=== PATIENT | female | born 1975 ===

== ENCOUNTER 2017-06-24 08:40 | Day surgery (SDC) | payer OTHER ==
[2017-06-24] VITALS (8 sets, daily range): BP systolic 96–105; BP diastolic 56–70
[~2017-06-24] VITALS: Ht 152.4 cm; Wt 59.0 kg
[~2017-06-24 08:40] MED LIST: LR 1000ml 1,000 ML IVLG SCH
[2017-06-24] MEDS ORDERED: Lidocaine 1% MPF 10mg/ml 5ml ONE (08:41)
[2017-06-24] MEDS ORDERED: Propofol 200mg/20ml IV ONE (08:41)
[2017-06-24] MEDS ORDERED: ALBUTEROL SULF8.5 GM INH (09:44)
[2017-06-24] MEDS ORDERED: SERTRALINE HCL100 MG PO (09:44)
[2017-06-24] MEDS ORDERED: LEVSIN-SL0.125 MG SL (09:44)
[2017-06-24] MEDS ORDERED: ZOLPIDEM TARTRA10 MG ORAL (09:44)
[2017-06-24] MEDS ORDERED: OMEPRAZOLE40 M1 ORAL (09:44)
[2017-06-24] MEDS ORDERED: DILAUDID8 MG PO (09:44)
[2017-06-24] MEDS ORDERED: TOPIRAMATE100 MG ORAL (09:44)
[2017-06-24] MEDS ORDERED: LR 1000ml 1,000 ML IVLG SCH (10:20)
--- NOTE | 2017-06-24 10:22 | Anethesia Preoperative Eval ---
Anesthesia Pre-op PMH/ROS General Date of Evaluation: Jun 24, 2017 Time of Evaluation: 10:37 Anesthesiologist: Patrick ASA Score: ASA 3 Mallampati Score Class I : Soft palate, uvula, fauces, pillars visible Class II: Soft palate, uvula, fauces visible Class III: Soft palate, base of uvula visible Class IV: Only hard plate visible Mallampati Classification: Class II Surgeon: Shay Diagnosis: GERD Surgical Procedure: EGD Anesthesia History: none Family History: no anesthesia problems Allergies: Coded Allergies: No Known Allergies (Unverified , 06/23/17) Medications: see eMAR Past Medical History Cardiovascular: Reports: HTN, other - HL Pulmonary: Reports: asthma Gastrointestinal/Genitourinary: Reports: GERD Endocrine: Reports: DM PSxH Narrative: L CTR Anesthesia Pre-op Phys. Exam Physician Exam Last Vital Signs Date Time Temp Pulse Resp B/P (MAP) Pulse Ox O2 Delivery O2 Flow Rate FiO2 06/24/17 09:32 98.6 74 18 102/68 97 Room Air 98.6 Constitutional: NAD Neurologic: CN 2-12 intact Cardiovascular: RRR Respiratory: CTA Gastrointestinal: S/NT/ND Airway Exam Mallampati Score: Class II MO: limited ROM: limited Teeth: intact, broken Anesthesia Pre-op A/P Labs Urine Test Test 06/24/17 08:50 Urine HCG, Qualitative Negative (NEGATIVE) Risk Assessment & Plan Assessment: ASA 3 Plan: GA Status Change Before Surgery: No Froy Douglas MD Jun 24, 2017 10:22
[2017-06-24] MEDS ORDERED: Atropine Inj 1mg/10ml Syr IV PRN (10:30)
[2017-06-24] MEDS ORDERED: Midazolam 2mg/2ml Inj IVP PRN (10:30)
[2017-06-24] MEDS ORDERED: DiphenhydrAMINE 50mg/ml Inj IVP PRN (10:30)
[2017-06-24] MEDS ORDERED: Labetalol 5mg/ml 20ml vial IV PRN (10:30)
[2017-06-24] MEDS ORDERED: fentaNYL 100 mcg/2 mL IV PRN (10:30)
[2017-06-24] MEDS ORDERED: Norco 5mg/325mg tab ORAL PRN (10:30)
[2017-06-24] MEDS ORDERED: Hydromorphone 0.5mg/0.5ml inj IVP PRN (10:30)
[2017-06-24] MEDS ORDERED: LORazepam Inj 2mg/ml 1ml IV PRN (10:30)
[2017-06-24] MEDS ORDERED: oxyCODONE HCL/Acetaminophen 5/325mg ORAL PRN (10:30)
[2017-06-24] MEDS ORDERED: HYDROcodone/Acetamin 7.5/325 tab ORAL PRN (10:30)
[2017-06-24] MEDS ORDERED: Ketorolac 30mg Inj IV PRN ×2 (10:30)
--- NOTE | 2017-06-24 10:37 | Short Stay Surgery H&P ---
History of Present Illness History of Present Illness Chief Complaint Rectal bleeding, abdominal pains, GERDs and anemia. PASCUAL Dorsey is a 42 year old female who was admitted on for Abdominal Pain, Constipation,Heartburn, rectal bleeding Patient History Allergies: Coded Allergies: No Known Allergies (Unverified , 06/23/17) PAST MEDICAL HISTORY: (1) Injury of gallbladder during surgery (2) History of (3) H/O hand surgery (4) Disc disorder (5) Hyperlipidemia (6) Diabetes Past Surgeries: Social History: Medication History Scheduled Albuterol Sulfate* (Albuterol Sulfate Mdi*), 2 PUFF INH PRN, (Reported) Hydromorphone Hcl (Dilaudid), 8 MG PO DAILY, (Reported) Hyoscyamine Sulfate* (Levsin-Sl*), 0.125 MG SL FOUR TIMES A DAY, (Reported) Omeprazole (Omeprazole), 40 MG ORAL DAILY, (Reported) Sertraline Hcl* (Zoloft*), 100 MG PO BID, (Reported) Topiramate* (Topamax*), 100 MG ORAL TWICE A DAY, (Reported) Scheduled PRN Zolpidem Tartrate* (Zolpidem Tartrate*), 10 MG ORAL BEDTIME PRN for Insomnia, ( Reported) Review of Systems Cardiovascular: Reports: no symptoms Respiratory: Reports: no symptoms Skeletal: Reports: trauma Gastrointestinal: Reports: gastro esophageal reflux disease Genitourinary: Reports: no symptoms Neurologic: Reports: no symptoms Endocrine: Reports: diabetes - type 2 Hematologic: Reports: anemia Physical Exam Vital Signs Last Vital Signs Date Time Temp Pulse Resp B/P (MAP) Pulse Ox O2 Delivery O2 Flow Rate FiO2 06/24/17 09:32 98.6 74 18 102/68 97 Room Air 98.6 Labs Laboratory Tests Test 06/24/17 08:50 Urine HCG, Qualitative Negative (NEGATIVE) Skin: normal HENT: normal Heart: normal Lungs: normal Abdomen: abnormal Extremities: normal Genitourinary: normal Plan Plan of Care Upper and lower GI endoscopy Preop Interventions None. Summary of Findings see the reports Final Diagnosis: Attestation Are the patient's medical conditions optimized for surgery? Attestation Response: yes HELEN WALSH Jun 24, 2017 10:37
--- NOTE | 2017-06-24 10:38 | Pre-Procedure Note/Attestation ---
Pre-Procedure Note/Attestation Complete Prior to Procedure Planned Procedure: left Procedure Narrative: Endoscopic examination of the Upper and lower GI tract via endoscopy Indications for Procedure Pre-Operative Diagnosis: R/O peptic ulcer/colitis/polyps Attestation I attest that I discussed the nature of the procedure; its benefits; risks and complications; and alternatives (and the risks and benefits of such alternatives ), prior to the procedure, with the patient (or the patient's legal sales representative trainee). I attest that, if there was a reasonable possibility of needing a blood transfusion, the patient (or the patient's legal sales representative trainee) was given the [place] [employer] [facility] [employer] [facility] standardized written summary, pursuant to the [place] Blood Safety Act ([place] Health and Safety Code # 1645, as amended). I attest that I re-evaluated the patient just prior to the surgery and that there has been no change in the patient's H&P, except as documented below: HELEN WALSH Jun 24, 2017 10:38
--- NOTE | 2017-06-24 10:57 | Immediate Post-Op Evaluation ---
Immediate Post-Op Evalulation Immediate Post-Op Evalulation Procedure: EGD Date of Evaluation: Jun 24, 2017 Time of Evaluation: 11:22 IV Fluids: 400 LR Blood Products: 0 Estimated Blood Loss: 6 Urinary Output: 0 Blood Pressure Systolic: 103 Blood Pressure Diastolic: 70 Pulse Rate: 72 Respiratory Rate: 16 O2 Sat by Pulse Oximetry: 100 Temperature (Fahrenheit): 97.6 Pain Score (1-10): 1 Nausea: No Vomiting: No Complications 0 Patient Status: awake, reacts, patent, none Hydration Status: adequate Froy Douglas MD Jun 24, 2017 10:57
--- NOTE | 2017-06-24 11:11 | Endoscopy Procedure Note ---
Endoscopy Procedure Note General Indication for Procedure: Abdominal pains, GERds, Rectal bleeding and anemia. Procedures Performed: EGD - Mild antritis, biopsy obtained from antral area, otherwise normal UGI endoscopy., colonoscopy - Highly redundant left colon. Poor colon prep. Minimal internal hemorrhoids consistent with Grade I hemorrhoids. Specimen: yes Pt Tolerated Procedure Well: Yes Estimated Blood Loss: none Anesthesia Anesthesiologist: Dr. Douglas Anesthesia: moderate sedation Medications Medication Given: see anesthesia record Inserted Devices Implant(s) used?: No Quality Quality of Bowel Preparation: Poor Did scope reach the cecum?: Yes GI Core Measures 50 yrs or older w/o bx or poly: No 10yrs. F/U not recommended: Yes <3yrs. since last colonoscopy: No Med reason:<3 yrs.: System Reason:<3 yrs.: HELEN WALSH Jun 24, 2017 11:11
--- NOTE | 2017-06-24 11:12 | Discharge Instructions ---
Discharge Instructions Discharge Instructions Follow up with: See the docotor in office after 2 weeks For Congestive Heart Failure Reminder Report to your physician any weight gain of 5 pounds or more in one week. HELEN WALSH Jun 24, 2017 11:12
--- NOTE | 2017-06-24 17:45 | Pre-op HX & Phy Repo 2 SIG ---
DATE OF ADMISSION: 06/24/2017 REFERRING PHYSICIAN: Dr. Avendano. HISTORY OF PRESENT ILLNESS: The applicant is a 42-year-old female who is being seen prior to undergoing the procedures of upper and lower GI endoscopy for which she has been scheduled and recommended by the primary treating physician for evaluation of her symptoms that she has suffered subsequent to work injury such as abdominal pain, rectal bleeding, heartburn, etc. The patient reports that she is having pain all over the abdomen but mostly over the upper and lower part of it. The upper abdominal pain also radiates toward the chest at times. She reports that subsequent to her injury, she received significant amount of medications including nonsteroidal anti-inflammatory agents with narcotics to help with her pain. She started to experience these symptoms along with occasional nausea and rarely vomiting. There has been no history of hematemesis or melena; however, she has had the rectal bleeding from time to time. She reported she was also treated with medications such as omeprazole. She denies having difficulty swallowing at this time. She also had history of intermittent constipation and as I mentioned occasional intermittent hematochezia, which was attributed possibly related to underlying hemorrhoids. 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 Subsequently, she was seen by multiple examiners and received medications as I mentioned above. She has also reported that she had to undergo surgeries for dorsal lumbar disk disease and hand surgery as well. PAST MEDICAL HISTORY: She has had hyperlipidemia and diabetes. PAST SURGICAL HISTORY: As I mentioned, dorsolumbar disk surgery and hand surgery, , cholecystectomy. ALLERGIES: Naproxen and Celebrex. CURRENT MEDICATIONS: Zolpidem, hydromorphone, omeprazole, Ventolin, Topamax, and Zoloft. HABITS: The applicant denies drinking alcohol or smoking cigarettes. REVIEW OF SYSTEMS: Basically history of present illness. PHYSICAL EXAMINATION: GENERAL: Reveals alert and well-oriented, very pleasant female, does not seem to be in acute distress. VITAL SIGNS: All stable. HEENT: Normocephalic. Pupils equal in size and reactive to light and accommodation. No visible jaundice. Buccal cavity, tongue midline, well hydrated. No ulcers noted. NECK: Supple. No JVD or thyromegaly. CHEST: Clear to auscultation and percussion. No rales or rhonchi. HEART: S1 and S2 normal. Regular rhythm. No gallops or murmur. ABDOMEN: Soft, but tender generally all over the abdomen, particularly in the epigastric area and right side of the abdomen, but there is no hepatosplenomegaly. Bowel sounds are present. No masses noted. EXTREMITIES: Nonsignificant. No edema or clubbing. NEUROLOGICAL: Nonsignificant. PRELIMINARY PREOPERATIVE IMPRESSION: 1. Abdominal pain of uncertain etiology, rule out gastritis, rule out colitis, rule out peptic ulcer disease. 2. History of gastroesophageal reflux, aggravated by NSAIDs medications, rule out esophagitis. 3. History of anemia of uncertain etiology per report of primary treating physician. 4. History of work-related bodily injury, orthopedic diagnosis. 5. History of anxiety and depression. RECOMMENDATION: The applicant seems to be stable at this time to undergo the procedures of upper and lower GI endoscopy for which she has been scheduled. She understands the risks and benefits and will sign the consent. Said Santosh Day DR: Sienna JOB#: [id number] CC:
--- NOTE | 2017-06-24 19:30 | Procedure Note ---
DATE OF PROCEDURE: 06/24/2017 PROCEDURE: Total colonoscopy. SURGEON: Gordon Day M.D. PREOPERATIVE DIAGNOSES: Rectal bleeding and abdominal pain. POSTOPERATIVE DIAGNOSES: 1. Minimal internal hemorrhoids and high redundancy of the left colon. 2. Poor colonic preparation, otherwise completely normal total colonoscopy up to the base of the cecum as examined. MEDICATION USED: Per Dr. Nguyen, anesthesiologist. INSTRUMENT: GIF Olympus videocolonoscope. DESCRIPTION OF PROCEDURE: The patient after arriving in endoscopy unit, was told about risks and benefits of the procedure, which she accepted and signed informed consent. At this time, the scope was gently advanced into the anal area and retroflexion maneuver, which was applied here revealed evidence of very minimal internal hemorrhoids consistent with grade 1 internal hemorrhoids, which was not friable. The rest of the rectum looked completely normal without any evidence of inflammatory process, ulceration, polyps, tumors, etc. At this point, the scope was passed through the rectosigmoid angle introduced into the left descending colon, which was quite redundant and significant amount of time was spent to pass through this area and straighten the colon. Finally, the scope could reach to the splenic flexure, from there into transverse colon, hepatic flexure, and right colon all the way to the base of the cecum. All these areas remained to be completely normal, and no evidence of any pathology found. The colon cleanup was poor and there was significant amount of liquid stool along the colon making the examination difficult. However, no gross pathology was found. After reaching the base of the cecum within 7 minutes, the scope was gradually pulled out and re-evaluation of the colon did not reveal any other pathologies. The patient tolerated the procedure well and left the endoscopy room in a good condition. Gordon Day M.D. DR: Sienna JOB#: [id number] CC:
--- NOTE | 2017-06-24 21:00 | Procedure Note ---
DATE OF PROCEDURE: 06/24/2017 SURGEON: Gordon Day M.D. PROCEDURE: Esophagogastroduodenoscopy with biopsy. PREOPERATIVE DIAGNOSES: 1. Abdominal pain. 2. History of gastroesophageal reflux. POSTOPERATIVE DIAGNOSIS: Evidence of mild inflammatory process in the antrum consistent with mild antritis which was biopsied, otherwise normal study. MEDICATION USED: Per Dr. Douglas, anesthesiologist. INSTRUMENT: GIF Olympus upper GI videoendoscope. DESCRIPTION OF PROCEDURE: The patient after arriving in endoscopy unit, was told about risks and benefits of the procedure, which she accepted and signed informed consent. At this time, she was put on the left lateral decubitus position. After adequate IV sedation, the scope was gently passed through the cricopharyngeal area, was lodged into the upper esophagus, and gradually advanced towards gastroesophageal junction. The entire length of the esophagus looked normal and there was no any evidence of inflammatory process, ulceration, stricture, etc. GE junction also looked normal and there was no evidence of hiatal hernia or Thurman's. At this time, the scope was advanced into the stomach. Gastric cavity was distended with insufflation of air. The areas of the body and the fundus examined, which were normal, however, upon entering into the antrum, there was evidence of mild inflammatory process presenting with erythema and linear edema as it was biopsied, but there was no ulcers, bleeding site, tumor, polyps etc. The scope was then passed through normal-looking pylorus. First and second portion of duodenum were found to be completely normal. At this point, the scope was pulled back into the stomach, a retroflexion maneuver was applied, and the area of the gastroesophageal junction was examined in a closer fashion which revealed normal findings. Finally, the scope was pulled out and the procedure was terminated. The patient tolerated the procedure well. Gordon Day M.D. DR: CHERYL JOB#: [id number] CC:
== END 2017-06-24 12:45 | disposition home or self-care (01) ==
LOC: GAS 08:40
DX: K64.8 Other hemorrhoids (principal); R10.9 Unspecified abdominal pain; K21.9 Gastro-esophageal reflux disease without esophagitis; I10 Essential (primary) hypertension; E11.9 Type 2 diabetes mellitus without complications
CPT/HCPCS: 43239; 45378; 81025; 82962; J1885; J2704; 94003; 94150